=== PATIENT | female | born 1960 | race Caucasian/White ===

== ENCOUNTER 2017-03-15 21:22 | Inpatient (IN) | payer MEDICAID ==
[~2017-03-15] VITALS: Ht 160 cm; Wt 50.0 kg
[~2017-03-15 21:22] MED LIST: BACL10TA2 PO; FLUT16SP26 BOTHNARES; NAPR500T4 PO
[2017-03-15] MEDS ORDERED: diltiazem 5mg/ml 5ml inj. IV ONE ×3 (21:50→23:25)
[2017-03-15 22:20] LABS: PARTIAL THROMBOPLASTIN TIME 33 SECONDS (22-32); PROTHROMBIN TIME 10.6 SECONDS (9.0-12.0)
[2017-03-15 22:27] LABS: HEMOGLOBIN 14.6 g/dl (12.0-16.0); MEAN CORPUSCULAR VOLUME 91.5 FL (78-98); RED BLOOD COUNT 4.81 X10'6 (4.20-5.60); WHITE BLOOD COUNT 20.8 X10'3 (4.5-11.0)
[2017-03-15 22:28] LABS: BASOPHILS % (AUTO) 0.2 % (0-1); EOSINOPHILS # (AUTO) 0.2 X10'3 (0-0.9); EOSINOPHILS % (AUTO) 0.8 % (0-6); LYMPHOCYTES # (AUTO) 1.4 X10'3 (1.1-4.8); LYMPHOCYTES % (AUTO) 6.9 % (21-51); MEAN CORPUSCULAR HEMOGLOBIN 30.4 PG (27.0-31.0); MEAN CORPUSCULAR HGB CONC 33.2 % (33.0-36.5); MEAN PLATELET VOLUME 9.1 FL (7.4-10.4); MONOCYTES # (AUTO) 0.9 X10'3 (0-0.9); MONOCYTES % (AUTO) 4.4 % (2-12); NEUTROPHILS # (AUTO) 18.2 X10'3 (1.8-7.7); NEUTROPHILS % (AUTO) 87.7 % (42-75); PLATELET COUNT 250 X10'3 (140-440); RED CELL DISTRIBUTION WIDTH 12.9 % (11.5-14.5)
[2017-03-15 22:29] LABS: MAGNESIUM 1.9 MG/DL (1.5-2.4)
[2017-03-15] MEDS ORDERED: normal saline 1000ML IV soln IVB ONE (22:45)
[2017-03-15] MEDS ORDERED: diltiazem-D5W 125mg/125ml 125 ML IV ONE (22:46)
[2017-03-15] MEDS ORDERED: magnesium 2GM in 50ml NS 50 ML IV ONE (22:55)
[2017-03-15] MEDS: diltiazem-D5W 125mg/125ml 125 ML IV PRN (22:56)
[2017-03-15] MEDS ORDERED: iohexol 350MG/ML 100ml bottle IV ONE (23:03)
[2017-03-15 23:05] LABS: ALANINE AMINOTRANSFERASE 18 U/L (12-78); ALBUMIN 3.2 G/DL (3.4-5.0); ALBUMIN/GLOBULIN RATIO 0.7 (1.1-1.5); ALKALINE PHOSPHATASE 69 IU/L (46-116); ANION GAP 13 (8-16); ASPARTATE AMINO TRANSFERASE 18 U/L (10-37); BILIRUBIN,TOTAL 0.6 MG/DL (0.1-1.0); BLOOD UREA NITROGEN 11 MG/DL (7-18); BUN/CREATININE RATIO 14.3 (6.6-38.0); CALCIUM 8.8 MG/DL (8.5-10.1); CHLORIDE 101 MMOL/L (99-107); CREATININE 0.77 MG/DL (0.40-0.90); GLUCOSE 118 MG/DL (70-104); SODIUM 137 MMOL/L (135-145); TOTAL CARBON DIOXIDE 22.8 MMOL/L (24-32); TOTAL PROTEIN 7.6 G/DL (6.4-8.2); eGFR 78 ML/MIN
[2017-03-15 23:24] LABS: PLATELET ESTIMATE NORMAL; TOTAL CELLS COUNTED 100
[2017-03-16] MEDS ORDERED: ondansetron/PF 4mg/2ml inj IV ONE (00:05)
[2017-03-16] MEDS ORDERED: normal saline 1000ML IV soln IVB ONE (00:05)
[2017-03-16] MEDS ORDERED: levoFLOXACIN-Levaquin 750MG/D5 150 ML IV ONE (00:05)
[2017-03-16] MEDS ORDERED: diltiazem 5mg/ml 5ml inj. IV ONE (00:55)
[2017-03-16] MEDS ORDERED: digoxin 250mcg/ml 2ml ampule IV ONE ×2 (01:35→03:05)
[2017-03-16] MEDS ORDERED: normal saline 1000ml 1,000 ML IV ONE (04:35)
[2017-03-16] MEDS ORDERED: mag hydrox/Alum hydrox/simeth 30ml oral suspension PO PRN (04:35)
[2017-03-16] MEDS ORDERED: magnesium hydroxide 30ml (MOM) UD suspension PO PRN (04:35)
[2017-03-16] MEDS ORDERED: acetaminophen 325mg tablet PO PRN (04:35)
[2017-03-16] MEDS: normal saline 1000ml 1,000 ML IV SCH ×2 (05:16→14:43)
[2017-03-16] MEDS: diltiazem-D5W 125mg/125ml 125 ML IV PRN (07:19)
[2017-03-16] MEDS ORDERED: lactobacillus rhamnosus 10,000 MMU CELLS/CAPSULE PO SCH (07:30)
[2017-03-16] MEDS ORDERED: enoxaparin 40mg/0.4ml syringe SUBCUT SCH (08:00)
[2017-03-16] MEDS: acetaminophen 325mg tablet PO PRN ×2 (08:51→19:23)
[2017-03-16] MEDS: ondansetron/PF 4mg/2ml inj IV PRN (16:39)
[2017-03-16 17:30] VITALS: BP 122/76
[2017-03-16] MEDS ORDERED: proCHLORperazine 10 MG/2 ml inj IV PRN (18:00)
[2017-03-16] MEDS ORDERED: diltiazem-D5W 125mg/125ml 125 ML IV SCH (18:50)
[2017-03-16 19:00] VITALS: BP 128/77
[2017-03-16] MEDS: enoxaparin 50mg/0.5ml (from 3ml vial) syringe SUBCUT SCH (19:24)
[2017-03-16] MEDS: levoFLOXACIN-Levaquin 750MG/D5 150 ML IV SCH (20:17)
[2017-03-16] MEDS ORDERED: metoprolol tartrate 25mg tablet PO ONE (20:35)
[2017-03-16 23:00] VITALS: BP 113/68
[2017-03-17] MEDS: ondansetron/PF 4mg/2ml inj IV PRN ×2 (02:00→19:29)
[2017-03-17] MEDS: acetaminophen 325mg tablet PO PRN ×2 (02:48→12:46)
[2017-03-17 03:00] VITALS: BP 123/63
[2017-03-17] MEDS: normal saline 1000ml 1,000 ML IV SCH ×3 (05:19→21:02)
[2017-03-17 05:30] VITALS: BP 124/75
[2017-03-17 06:22] LABS: BASOPHILS % (AUTO) 0.5 % (0-1); EOSINOPHILS % (AUTO) 0.1 % (0-6); HEMATOCRIT 33.7 % (35.0-45.0); HEMOGLOBIN 11.3 g/dl (12.0-16.0); LYMPHOCYTES # (AUTO) 1.1 X10'3 (1.1-4.8); LYMPHOCYTES % (AUTO) 20.2 % (21-51); MEAN CORPUSCULAR HEMOGLOBIN 31.1 PG (27.0-31.0); MEAN CORPUSCULAR HGB CONC 33.4 % (33.0-36.5); MEAN CORPUSCULAR VOLUME 93.1 FL (78-98); MEAN PLATELET VOLUME 9.4 FL (7.4-10.4); MONOCYTES # (AUTO) 0.7 X10'3 (0-0.9); MONOCYTES % (AUTO) 12.4 % (2-12); NEUTROPHILS # (AUTO) 3.7 X10'3 (1.8-7.7); NEUTROPHILS % (AUTO) 66.8 % (42-75); PLATELET COUNT 179 X10'3 (140-440); RED BLOOD COUNT 3.62 X10'6 (4.20-5.60); RED CELL DISTRIBUTION WIDTH 13.2 % (11.5-14.5); WHITE BLOOD COUNT 5.6 X10'3 (4.5-11.0)
[2017-03-17 06:35] LABS: ALBUMIN 2.3 G/DL (3.4-5.0); ANION GAP 8 (8-16); BLOOD UREA NITROGEN 2 MG/DL (7-18); BUN/CREATININE RATIO 3.7 (6.6-38.0); CHLORIDE 107 MMOL/L (99-107); CREATININE 0.54 MG/DL (0.40-0.90); GLUCOSE 83 MG/DL (70-104); POTASSIUM 3.7 MMOL/L (3.5-5.1); SODIUM 140 MMOL/L (135-145); TOTAL CARBON DIOXIDE 25.1 MMOL/L (24-32); eGFR > 90 ML/MIN
[2017-03-17] MEDS: LACTOBACILLUS RHAMNOSUS GG 15 billion unit sprinkle caps PO SCH (08:17)
[2017-03-17] MEDS: metoprolol tartrate 25mg tablet PO SCH ×2 (08:17→19:29)
[2017-03-17] MEDS: enoxaparin 50mg/0.5ml (from 3ml vial) syringe SUBCUT SCH (08:18)
[2017-03-17 11:00] VITALS: BP 143/84
[2017-03-17] MEDS: oseltamivir phos 75mg capsule PO SCH ×2 (11:50→19:29)
[2017-03-17] MEDS: LIDOcaine/PRILOcaine 5gm cream TP PRN ×2 (12:57→21:02)
[2017-03-17 15:00] VITALS: BP 155/85
[2017-03-17 19:00] VITALS: BP 147/91
[2017-03-17] MEDS: levoFLOXACIN-Levaquin 750MG/D5 150 ML IV SCH (20:12)
[2017-03-17 21:51] LABS: CLARITY,URINE Clear (Clear); COLOR,URINE Yellow (Yellow); GLUCOSE, URINE Negative (Neg); KETONES,URINE Negative (Neg); LEUKOCYTE ESTERASE ,URINE Negative (Neg); NITRITES, URINE Negative (Neg); OCCULT BLOOD,URINE Negative (Neg); PH,URINE 7.5 (4.8-8.0); PROTEIN,URINE Negative (Neg)
[2017-03-17 22:08] LABS: UA COLLECTION TYPE VOIDED
[2017-03-17 23:00] VITALS: BP 129/76
[2017-03-18] MEDS: acetaminophen 325mg tablet PO PRN ×2 (01:20→07:24)
[2017-03-18] MEDS: LIDOcaine/PRILOcaine 5gm cream TP PRN ×2 (01:20→07:24)
[2017-03-18 03:00] VITALS: BP 124/77
[2017-03-18 05:16] LABS: BASOPHILS % (AUTO) 0.6 % (0-1); EOSINOPHILS # (AUTO) 0.1 X10'3 (0-0.9); EOSINOPHILS % (AUTO) 1.6 % (0-6); HEMATOCRIT 34.4 % (35.0-45.0); HEMOGLOBIN 11.6 g/dl (12.0-16.0); LYMPHOCYTES # (AUTO) 1.1 X10'3 (1.1-4.8); LYMPHOCYTES % (AUTO) 25.4 % (21-51); MEAN CORPUSCULAR HEMOGLOBIN 31.6 PG (27.0-31.0); MEAN CORPUSCULAR HGB CONC 33.7 % (33.0-36.5); MEAN CORPUSCULAR VOLUME 93.6 FL (78-98); MEAN PLATELET VOLUME 8.7 FL (7.4-10.4); MONOCYTES # (AUTO) 0.5 X10'3 (0-0.9); MONOCYTES % (AUTO) 10.7 % (2-12); NEUTROPHILS # (AUTO) 2.6 X10'3 (1.8-7.7); NEUTROPHILS % (AUTO) 61.7 % (42-75); PLATELET COUNT 203 X10'3 (140-440); RED BLOOD COUNT 3.68 X10'6 (4.20-5.60); RED CELL DISTRIBUTION WIDTH 13.2 % (11.5-14.5); WHITE BLOOD COUNT 4.3 X10'3 (4.5-11.0)
[2017-03-18 05:37] LABS: ALBUMIN 2.5 G/DL (3.4-5.0); ANION GAP 8 (8-16); BLOOD UREA NITROGEN 2 MG/DL (7-18); BUN/CREATININE RATIO 3.3 (6.6-38.0); CALCIUM 8.1 MG/DL (8.5-10.1); CHLORIDE 107 MMOL/L (99-107); CREATININE 0.61 MG/DL (0.40-0.90); GLUCOSE 91 MG/DL (70-104); POTASSIUM 3.6 MMOL/L (3.5-5.1); SODIUM 141 MMOL/L (135-145); TOTAL CARBON DIOXIDE 26.5 MMOL/L (24-32); eGFR > 90 ML/MIN
[2017-03-18] MEDS: normal saline 1000ml 1,000 ML IV SCH (06:35)
[2017-03-18 07:00] VITALS: BP 142/75
[2017-03-18] MEDS: LACTOBACILLUS RHAMNOSUS GG 15 billion unit sprinkle caps PO SCH (07:23)
[2017-03-18] MEDS: metoprolol tartrate 25mg tablet PO SCH (07:24)
[2017-03-18] MEDS: oseltamivir phos 75mg capsule PO SCH (07:24)
[2017-03-18] MEDS ORDERED: enoxaparin 40mg/0.4ml syringe SUBCUT SCH (08:00)
[2017-03-18] MEDS ORDERED: LACT1CAP74 PO (09:55)
[2017-03-18] MEDS ORDERED: LIDO30CR23 TP (09:55)
[2017-03-18] MEDS ORDERED: METO25TA6 PO (09:55)
[2017-03-18] MEDS ORDERED: TAM75C PO (09:55)
[2017-03-18] MEDS ORDERED: LEVO750T21 PO (09:55)
[2017-03-18] MEDS ORDERED: NICO-731 TD (10:01)
[2017-03-18] MEDS ORDERED: NICO-630 TD (10:01)
[2017-03-19] MEDS ORDERED: FLU VACC QS2017-18 36MOS UP/PF 60 MCG/0.5 ML SYRINGE IMVAC ONE (10:00)
== END 2017-03-18 11:20 | disposition home or self-care (01) | DRG 720 ==
LOC: ER 21:23 → ED HOLD 03-16 04:35 → PCU 3S 03-16 17:22
PROVIDERS: ADMIT Internal Medicine; ATTEND Family Medicine
PROC: B32T1ZZ Computerized Tomography (CT Scan) of Left Pulmonary Artery using Low Osmolar Contrast (ICD-10-PCS; principal; 2017-03-15)
PROC: B3201ZZ Computerized Tomography (CT Scan) of Thoracic Aorta using Low Osmolar Contrast (ICD-10-PCS; 2017-03-15)
PROC: B32S1ZZ Computerized Tomography (CT Scan) of Right Pulmonary Artery using Low Osmolar Contrast (ICD-10-PCS; 2017-03-15)
DX: A41.9 Sepsis, unspecified organism (principal); J10.00 Influenza due to other identified influenza virus with unspecified type of pneumonia; I48.92 Unspecified atrial flutter; I10 Essential (primary) hypertension; G43.909 Migraine, unspecified, not intractable, without status migrainosus; F17.210 Nicotine dependence, cigarettes, uncomplicated; F32.9 Major depressive disorder, single episode, unspecified; G89.29 Other chronic pain; M54.9 Dorsalgia, unspecified; R07.89 Other chest pain; Z68.1 Body mass index [BMI] 19.9 or less, adult; Z23 Encounter for immunization; Z88.5 Allergy status to narcotic agent; Z88.8 Allergy status to other drugs, medicaments and biological substances; Z71.6 Tobacco abuse counseling; Z79.899 Other long term (current) drug therapy
CPT/HCPCS: 36415; 71045; 71275; 80048; 80053; 80162; 81003; 83605; 83735; 83880; 84145; 84443; 84484; 85025; 85610; 85730; 87040; 87502; 87503; 93005; 93306; 96365; 96366; 96375; 96376; 99291; A6258; J1160; J1650; J1956; J2270; J2405; J3475; J3490; J7030; Q9967

== ENCOUNTER 2017-12-10 12:08 | Emergency (ER) | payer MEDICAID ==
[~2017-12-10] VITALS: Ht 160 cm; Wt 59.1 kg
[~2017-12-10 12:08] MED LIST changes: -BACL10TA2 PO; +LACT1CAP74 PO; +LIDO30CR23 TP; +METO25TA6 PO; -NAPR500T4 PO; +NICO-731 TD; +TAM75C PO
[2017-12-10] MEDS ORDERED: normal saline 1000ML IV soln IVB ONE (12:30)
[2017-12-10 12:45] LABS: BASOPHILS # (AUTO) 0.2 X10'3 (0-0.2); BASOPHILS % (AUTO) 1.5 % (0-1); EOSINOPHILS # (AUTO) 0.1 X10'3 (0-0.9); EOSINOPHILS % (AUTO) 0.6 % (0-6); HEMATOCRIT 43.6 % (35.0-45.0); HEMOGLOBIN 14.6 g/dl (12.0-16.0); LYMPHOCYTES # (AUTO) 1.8 X10'3 (1.1-4.8); LYMPHOCYTES % (AUTO) 15.9 % (21-51); MEAN CORPUSCULAR HEMOGLOBIN 30.4 PG (27.0-31.0); MEAN CORPUSCULAR HGB CONC 33.6 % (33.0-36.5); MEAN CORPUSCULAR VOLUME 90.5 FL (78-98); MEAN PLATELET VOLUME 9.9 FL (7.4-10.4); MONOCYTES # (AUTO) 0.8 X10'3 (0-0.9); MONOCYTES % (AUTO) 7.3 % (2-12); NEUTROPHILS # (AUTO) 8.6 X10'3 (1.8-7.7); NEUTROPHILS % (AUTO) 74.7 % (42-75); PARTIAL THROMBOPLASTIN TIME 26 SECONDS (22-32); PLATELET COUNT 205 X10'3 (140-440); PROTHROMBIN TIME 10.2 SECONDS (9.0-12.0); RED BLOOD COUNT 4.82 X10'6 (4.20-5.60); RED CELL DISTRIBUTION WIDTH 12.5 % (11.5-14.5); WHITE BLOOD COUNT 11.5 X10'3 (4.5-11.0)
[2017-12-10 12:51] LABS: ALANINE AMINOTRANSFERASE 13 U/L (12-78); ALBUMIN 3.4 G/DL (3.4-5.0); ALBUMIN/GLOBULIN RATIO 0.8 (1.1-1.5); ALKALINE PHOSPHATASE 65 IU/L (46-116); ANION GAP 12 (8-16); ASPARTATE AMINO TRANSFERASE 19 U/L (10-37); BLOOD UREA NITROGEN 8 MG/DL (7-18); BUN/CREATININE RATIO 9.6 (6.6-38.0); CALCIUM 9.1 MG/DL (8.5-10.1); CHLORIDE 101 MMOL/L (99-107); CREATININE 0.83 MG/DL (0.40-0.90); GLUCOSE 170 MG/DL (70-104); POTASSIUM 3.3 MMOL/L (3.5-5.1); SODIUM 139 MMOL/L (135-145); TOTAL CARBON DIOXIDE 26.5 MMOL/L (24-32); TOTAL PROTEIN 7.6 G/DL (6.4-8.2); eGFR 71 ML/MIN
[2017-12-10] MEDS ORDERED: normal saline 1000ml 1,000 ML IV ONE (13:35)
[2017-12-10] MEDS ORDERED: pantoprazole 40 MG vial IV ONE (14:40)
[2017-12-10] MEDS ORDERED: ondansetron/PF 4mg/2ml inj IV ONE (14:40)
[2017-12-10] MEDS ORDERED: famotidine 20mg tablet PO ONE (14:40)
[2017-12-10] MEDS ORDERED: iohexol 350MG/ML 100ml bottle IV ONE (14:43)
[2017-12-10 15:30] VITALS: BP 126/80
[2017-12-10] MEDS ORDERED: levoFLOXACIN 750MG TABLET PO ONE (15:40)
[2017-12-10] MEDS ORDERED: LEVO750T21 PO (15:44)
== END 2017-12-10 16:03 | disposition home or self-care (01) ==
LOC: ER 12:09
DX: J18.9 Pneumonia, unspecified organism (principal); G43.909 Migraine, unspecified, not intractable, without status migrainosus; G89.29 Other chronic pain; F17.200 Nicotine dependence, unspecified, uncomplicated; Z88.6 Allergy status to analgesic agent; Z79.899 Other long term (current) drug therapy; Z79.2 Long term (current) use of antibiotics; Z56.0 Unemployment, unspecified
CPT/HCPCS: 36415; 71045; 71275; 80053; 84484; 85025; 85379; 85610; 85730; 93005; 96361; 96374; 96375; 99285; C9113; J2405; Q9967

== ENCOUNTER 2019-04-17 11:56 | Inpatient (IN) | payer MEDICARE, MEDICAID ==
[~2019-04-17] VITALS: Ht 160 cm; Wt 61.0 kg
[2019-04-17] MEDS ORDERED: diltiazem 5mg/ml 5ml inj. IV ONE ×2 (12:10→12:35)
[2019-04-17] MEDS ORDERED: diltiazem-D5W 125mg/125ml 125 ML IV SCH (12:10)
[2019-04-17 12:31] LABS: BASOPHILS # (AUTO) 0.1 X10'3 (0-0.2); BASOPHILS % (AUTO) 0.9 % (0-1); EOSINOPHILS # (AUTO) 0.1 X10'3 (0-0.9); EOSINOPHILS % (AUTO) 0.5 % (0-6); HEMATOCRIT 45.7 % (35.0-45.0); HEMOGLOBIN 15.4 g/dl (12.0-16.0); LYMPHOCYTES # (AUTO) 2.9 X10'3 (1.1-4.8); LYMPHOCYTES % (AUTO) 19.6 % (21-51); MEAN CORPUSCULAR HGB CONC 33.7 g/dL (33.0-36.5); MEAN CORPUSCULAR VOLUME 89.1 FL (78-98); MEAN PLATELET VOLUME 9.4 FL (7.4-10.4); MONOCYTES # (AUTO) 1.1 X10'3 (0-0.9); MONOCYTES % (AUTO) 7.3 % (2-12); NEUTROPHILS # (AUTO) 10.6 X10'3 (1.8-7.7); NEUTROPHILS % (AUTO) 71.7 % (42-75); PLATELET COUNT 282 X10'3 (140-440); RED BLOOD COUNT 5.13 X10'6 (4.20-5.60); RED CELL DISTRIBUTION WIDTH 13.5 % (11.5-14.5); WHITE BLOOD COUNT 14.8 X10'3 (4.5-11.0)
[2019-04-17 12:40] LABS: ALANINE AMINOTRANSFERASE 15 U/L (12-78); ALBUMIN 3.8 G/DL (3.4-5.0); ALBUMIN/GLOBULIN RATIO 0.9 (1.1-1.5); ALKALINE PHOSPHATASE 84 IU/L (46-116); ANION GAP 7 (8-16); ASPARTATE AMINO TRANSFERASE 15 U/L (10-37); BILIRUBIN,TOTAL 0.7 MG/DL (0.1-1.0); BLOOD UREA NITROGEN 8 MG/DL (7-18); BUN/CREATININE RATIO 9.3 (6.6-38.0); CALCIUM 9.1 MG/DL (8.5-10.1); CHLORIDE 101 MMOL/L (99-107); CREATININE 0.86 MG/DL (0.40-0.90); GLUCOSE 168 MG/DL (70-104); SODIUM 138 MMOL/L (135-145); TOTAL CARBON DIOXIDE 30.2 MMOL/L (24-32); TOTAL PROTEIN 8.1 G/DL (6.4-8.2); eGFR 68 ML/MIN
[2019-04-17 12:43] LABS: POTASSIUM 2.8 MMOL/L (3.5-5.1)
[2019-04-17] MEDS: diltiazem-NS 100mg/100ml 100 ML IV SCH ×2 (12:54→13:06)
[2019-04-17] MEDS ORDERED: metoprolol tartrate 1mg/ml inj IV ONE (12:55)
[2019-04-17] MEDS ORDERED: HYDR25TA4 PO (13:33)
[2019-04-17] MEDS ORDERED: LORA-268 PO (13:33)
[2019-04-17] MEDS ORDERED: HYDR-3686 PO (13:33)
[2019-04-17] MEDS ORDERED: OMEP-50 PO (13:33)
[2019-04-17] MEDS ORDERED: amiodarone 150mg/dext, iso-os 100 ML IV ONE (13:35)
[2019-04-17] MEDS ORDERED: enoxaparin 100mg/ml syringe SUBCUT ONE (13:35)
[2019-04-17] MEDS ORDERED: nitroGLYCERIN 0.4mg SUBLingual tab SL PRN ×2 (14:05→20:25)
[2019-04-17] MEDS ORDERED: mag hydrox/Alum hydrox/simeth 30ml oral suspension PO PRN (14:05)
[2019-04-17] MEDS ORDERED: potassium Cl 20 mEq SR tablet PO PRN (14:05)
[2019-04-17] MEDS ORDERED: morphine 2 MG/ML inj. syringe IV PRN ×2 (14:05)
[2019-04-17] MEDS ORDERED: magnesium hydroxide 30ml (MOM) UD suspension PO PRN (14:05)
[2019-04-17] MEDS ORDERED: ondansetron/PF 4mg/2ml inj IV PRN (14:05)
[2019-04-17] MEDS ORDERED: acetaminophen 325mg tablet PO PRN (14:05)
[2019-04-17] MEDS ORDERED: LORazepam 0.5 MG tablet PO PRN (14:05)
[2019-04-17] MEDS ORDERED: potassium CL 10mEq/100ml bag 100 ML IV PRN (14:05)
[2019-04-17] MEDS ORDERED: hydrOXYzine 25 MG tablet PO PRN (14:05)
[2019-04-17] MEDS: amiodarone/D5 360MG/200ML BAG 200 ML IV SCH ×4 (14:10→19:14)
[2019-04-17 14:38] LABS: HEMOGLOBIN A1C 5.7 % (4.5-6.2)
--- NOTE | 2019-04-17 15:40 | NUR ---
CALLED DR. CASTRO REGARDING PT HR STILL [id number] EVEN WHILE ON THE [employer] DRIP. STATED HE WAS ON HIS WAY DOWN TO EVALUATE PT NOW.
--- NOTE | 2019-04-17 16:13 | NUR ---
DR. CASTRO HERE AND NEW ORDERS RECIEVED. WAITING FOR HR TO COME DOWN BEFORE [facility] CAN ACCEPT PT.
[2019-04-17] MEDS ORDERED: digoxin 250mcg/ml 2ml ampule IV ONE (16:25)
[2019-04-17] MEDS ORDERED: diltiazem 30mg tablet PO SCH (16:26)
[2019-04-17] MEDS: potassium CL 10mEq/100ml bag 100 ML IV PRN ×2 (16:55→19:15)
[2019-04-17 18:00] VITALS: BP 121/73
--- NOTE | 2019-04-17 18:00 | NUR ---
Patient in room MED 309. I have received report from Nohemy NETTLES and had the opportunity to ask questions and assume patient care.
--- NOTE | 2019-04-17 18:41 | NUR ---
Problems reprioritized. Patient report given, questions answered & plan of care reviewed with THO Grant.
--- NOTE | 2019-04-17 18:50 | NUR ---
Spoke with Dr Garcia and received orders, in regards to K+ level he wanted to give the 10meq bag IV now along with 40 MEQ PO and then two hours later give another 40 Meq PO.
[2019-04-17 19:00] VITALS: BP 115/91
[2019-04-17] MEDS: potassium Cl 20 mEq SR tablet PO PRN ×2 (19:12→22:01)
[2019-04-17] MEDS: K and/or MAG REPLACEMENT MC SCH (19:41)
[2019-04-17 20:00] VITALS: BP 133/80
[2019-04-17] MEDS ORDERED: aminophylline 250mg/10ml inj. IV PRN (20:25)
[2019-04-17] MEDS ORDERED: regadenoson 0.4mg/5ml syringe IV PRN (20:25)
[2019-04-17] MEDS ORDERED: metoprolol tartrate 1mg/ml inj IV PRN (20:25)
[2019-04-17 21:00] VITALS: BP 113/65
[2019-04-17 22:00] VITALS: BP 122/63
[2019-04-17] MEDS: apixaban 5mg tablet PO SCH (22:01)
[2019-04-17] MEDS: carVEDilol 12.5mg tablet PO SCH (22:01)
[2019-04-17 23:00] VITALS: BP 119/72
[2019-04-18] VITALS (16 sets, daily range): BP systolic 100–167; BP diastolic 68–106
[2019-04-18] MEDS: amiodarone/D5 360MG/200ML BAG 200 ML IV SCH ×2 (05:08→19:55)
--- NOTE | 2019-04-18 06:16 | NUR ---
Problems reprioritized. Patient report given, questions answered & plan of care reviewed with Ebenezer Rebolledo.
--- NOTE | 2019-04-18 06:24 | NUR ---
Patient in room MED 309. I have received report from MONICA NETTLES and had the opportunity to ask questions and assume patient care.
[2019-04-18 06:36] LABS: BASOPHILS # (AUTO) 0.1 X10'3 (0-0.2); BASOPHILS % (AUTO) 1.2 % (0-1); EOSINOPHILS # (AUTO) 0.1 X10'3 (0-0.9); EOSINOPHILS % (AUTO) 1.2 % (0-6); HEMATOCRIT 43.6 % (35.0-45.0); HEMOGLOBIN 14.7 g/dl (12.0-16.0); LYMPHOCYTES # (AUTO) 2.1 X10'3 (1.1-4.8); LYMPHOCYTES % (AUTO) 22.7 % (21-51); MEAN CORPUSCULAR HGB CONC 33.8 g/dL (33.0-36.5); MEAN CORPUSCULAR VOLUME 88.9 FL (78-98); MONOCYTES # (AUTO) 0.9 X10'3 (0-0.9); MONOCYTES % (AUTO) 9.6 % (2-12); NEUTROPHILS # (AUTO) 5.9 X10'3 (1.8-7.7); NEUTROPHILS % (AUTO) 65.3 % (42-75); PLATELET COUNT 241 X10'3 (140-440); RED BLOOD COUNT 4.91 X10'6 (4.20-5.60); RED CELL DISTRIBUTION WIDTH 13.2 % (11.5-14.5)
[2019-04-18 06:45] LABS: ALBUMIN 3.3 G/DL (3.4-5.0); ANION GAP 4 (8-16); BLOOD UREA NITROGEN 9 MG/DL (7-18); BUN/CREATININE RATIO 13.6 (6.6-38.0); CALCIUM 8.7 MG/DL (8.5-10.1); CHLORIDE 106 MMOL/L (99-107); CHOL/HDL RATIO 3.6 (0.00-4.99); CHOLESTEROL 181 MG/DL (0-200); CREATININE 0.66 MG/DL (0.40-0.90); GLUCOSE 104 MG/DL (70-104); HDL CHOLESTEROL 50 MG/DL (35-60); LDL CHOLESTEROL 118 MG/DL (50-100); POTASSIUM 4.4 MMOL/L (3.5-5.1); SODIUM 139 MMOL/L (135-145); TOTAL CARBON DIOXIDE 28.6 MMOL/L (24-32); TRIGLYCERIDES 57 MG/DL (20-135); eGFR > 90 ML/MIN
[2019-04-18] MEDS: K and/or MAG REPLACEMENT MC SCH ×2 (07:11→20:00)
[2019-04-18] MEDS: pantoprazole 40mg Tablet.DR PO SCH (07:16)
[2019-04-18] MEDS: apixaban 5mg tablet PO SCH ×2 (07:16→20:03)
[2019-04-18] MEDS: aspirin 81mg tablet.DR PO SCH (07:17)
[2019-04-18] MEDS: carVEDilol 12.5mg tablet PO SCH ×2 (08:00→20:03)
--- NOTE | 2019-04-18 09:42 | NUR ---
DR. CASTRO AT BEDSIDE. NEW ORDERS RECEIVED: AMIO 200MG PO BID, TURN OFF AMIO GTT 2 HOURS POST PO AMIO GIVEN, NICOTINE PATCH 14MG QD
[2019-04-18] MEDS ORDERED: amiodarone 200mg tablet PO SCH (10:00)
[2019-04-18] MEDS ORDERED: FLU VACC QS2019-20 36MOS UP/PF 60 MCG/0.5 ML SYRINGE IMVAC ONE (10:00)
[2019-04-18] MEDS ORDERED: pneumococcal 23-VAL P-sac vacc 25 mcg/0.5ml vial IMVAC ONE (10:00)
[2019-04-18] MEDS: nicotine 14mg patch - 24hr TD SCH (11:00)
--- NOTE | 2019-04-18 14:56 | NUR ---
Patient in room MED 309. I have received report from THO Sol and had the opportunity to ask questions and assume patient care. Patient awake and in no acute distress.
--- NOTE | 2019-04-18 16:12 | NUR ---
DR. CASTRO PAGED: PAGER ID: [phone] MESSAGE: [phone]: NIR LOFTON NEGATIVE, ?EAT AND D/C? NURSE SARBJIT [id number]
[2019-04-18] MEDS ORDERED: DULO30CA52 PO (16:27)
--- NOTE | 2019-04-18 18:03 | NUR ---
Problems reprioritized. Patient report given, questions answered & plan of care reviewed with THO Grant. Patient stable at transfer of care.
--- NOTE | 2019-04-18 18:19 | NUR ---
Patient in room MED 309. I have received report from Dulce Rebolledo and had the opportunity to ask questions and assume patient care.
[2019-04-18] MEDS: flecainide 50mg tablet PO SCH (20:03)
[2019-04-19] MEDS: amiodarone/D5 360MG/200ML BAG 200 ML IV SCH ×2 (01:59→08:03)
[2019-04-19 02:00] VITALS: BP 132/78
[2019-04-19 05:00] LABS: BASOPHILS # (AUTO) 0.1 X10'3 (0-0.2); BASOPHILS % (AUTO) 1.3 % (0-1); EOSINOPHILS # (AUTO) 0.1 X10'3 (0-0.9); EOSINOPHILS % (AUTO) 1.4 % (0-6); HEMATOCRIT 45.1 % (35.0-45.0); HEMOGLOBIN 15.2 g/dl (12.0-16.0); LYMPHOCYTES # (AUTO) 1.6 X10'3 (1.1-4.8); LYMPHOCYTES % (AUTO) 23.8 % (21-51); MEAN CORPUSCULAR HEMOGLOBIN 29.7 PG (27.0-31.0); MEAN CORPUSCULAR HGB CONC 33.6 g/dL (33.0-36.5); MEAN CORPUSCULAR VOLUME 88.5 FL (78-98); MONOCYTES # (AUTO) 0.8 X10'3 (0-0.9); MONOCYTES % (AUTO) 12.1 % (2-12); NEUTROPHILS # (AUTO) 4.1 X10'3 (1.8-7.7); NEUTROPHILS % (AUTO) 61.4 % (42-75); PLATELET COUNT 247 X10'3 (140-440); RED CELL DISTRIBUTION WIDTH 13.1 % (11.5-14.5); WHITE BLOOD COUNT 6.8 X10'3 (4.5-11.0)
[2019-04-19 05:12] LABS: ALBUMIN 3.2 G/DL (3.4-5.0); ANION GAP 5 (8-16); BLOOD UREA NITROGEN 13 MG/DL (7-18); BUN/CREATININE RATIO 17.6 (6.6-38.0); CALCIUM 9.1 MG/DL (8.5-10.1); CHLORIDE 106 MMOL/L (99-107); CREATININE 0.74 MG/DL (0.40-0.90); GLUCOSE 93 MG/DL (70-104); POTASSIUM 3.9 MMOL/L (3.5-5.1); SODIUM 141 MMOL/L (135-145); TOTAL CARBON DIOXIDE 29.7 MMOL/L (24-32); eGFR 81 ML/MIN
--- NOTE | 2019-04-19 06:10 | NUR ---
Patient in room MED 309. I have received report from Rudy NETTLES and had the opportunity to ask questions and assume patient care.
[2019-04-19 06:12] LABS: MAGNESIUM 2.1 MG/DL (1.5-2.4)
--- NOTE | 2019-04-19 06:17 | NUR ---
Problems reprioritized. Patient report given, questions answered & plan of care reviewed with Radha NETTLES.
[2019-04-19 06:30] VITALS: BP 131/79
[2019-04-19] MEDS: K and/or MAG REPLACEMENT MC SCH (08:00)
[2019-04-19 08:30] VITALS: BP 129/84
[2019-04-19] MEDS: pantoprazole 40mg Tablet.DR PO SCH (08:31)
[2019-04-19] MEDS: flecainide 50mg tablet PO SCH (08:31)
[2019-04-19] MEDS: aspirin 81mg tablet.DR PO SCH (08:31)
[2019-04-19] MEDS: apixaban 5mg tablet PO SCH (08:31)
[2019-04-19] MEDS: carVEDilol 12.5mg tablet PO SCH (08:31)
[2019-04-19] MEDS: nicotine 14mg patch - 24hr TD SCH (08:32)
[2019-04-19] MEDS ORDERED: TAM50T PO (09:23)
[2019-04-19] MEDS ORDERED: APIX5TAB3 PO (09:23)
[2019-04-19] MEDS ORDERED: CARV-50 PO (09:23)
[2019-04-19] MEDS ORDERED: NICO-631 TD (09:23)
[2019-04-19] MEDS ORDERED: FLU VACC QS2019-20 36MOS UP/PF 60 MCG/0.5 ML SYRINGE IMVAC ONE (10:00)
[2019-04-19] MEDS ORDERED: pneumococcal 23-VAL P-sac vacc 25 mcg/0.5ml vial IMVAC ONE (10:00)
--- NOTE | 2019-04-19 10:40 | NUR ---
Escorted patient out to her personal vehicle via ambulation, without event, tolerated well. Discharge instructions discussed, verbalized understanding. IV removed- cathlon intact, tele dc'd, belongings sent with patient. E-scripts sent to pharmacy for pickup. Eager to go home. Knows to followup with PCP and Dr. Garcia.
--- NOTE | 2019-04-21 12:07 | NUR ---
Case management DC follow up: LM/VM questions/concerns, post DC status
== END 2019-04-19 10:40 | disposition home or self-care (01) | DRG 310 ==
LOC: ER 11:57 → ED HOLD 14:05 → MED 3N 17:42
PROVIDERS: ADMIT Internal Medicine; ATTEND Internal Medicine
PROC: 4A02XM4 Measurement of Cardiac Total Activity, External Approach (ICD-10-PCS; 2019-04-18)
PROC: 3E033HZ Introduction of Radioactive Substance into Peripheral Vein, Percutaneous Approach (ICD-10-PCS; 2019-04-18)
PROC: 3E02340 Introduction of Influenza Vaccine into Muscle, Percutaneous Approach (ICD-10-PCS; principal; 2019-04-19)
DX: I48.0 Paroxysmal atrial fibrillation (principal); F17.210 Nicotine dependence, cigarettes, uncomplicated; G47.33 Obstructive sleep apnea (adult) (pediatric); I10 Essential (primary) hypertension; I25.119 Atherosclerotic heart disease of native coronary artery with unspecified angina pectoris; J44.9 Chronic obstructive pulmonary disease, unspecified; Z60.2 Problems related to living alone; F32.9 Major depressive disorder, single episode, unspecified; F41.9 Anxiety disorder, unspecified; G43.909 Migraine, unspecified, not intractable, without status migrainosus; R00.0 Tachycardia, unspecified; G89.29 Other chronic pain; K21.9 Gastro-esophageal reflux disease without esophagitis; M54.9 Dorsalgia, unspecified; Z79.899 Other long term (current) drug therapy; Z79.01 Long term (current) use of anticoagulants; Z23 Encounter for immunization; Z88.5 Allergy status to narcotic agent
CPT/HCPCS: 36415; 71045; 78452; 80048; 80053; 80061; 83036; 83735; 84443; 84484; 85025; 87081; 93005; 93017; 93306; 96365; 96368; 96375; 99285; A9500; G0378; J0280; J0282; J1160; J1650; J2785; J3480; J3490; Q2037; Z7610